=== PATIENT | female | born 2000 | race Caucasian/White ===

== ENCOUNTER 2020-07-26 23:25 | Inpatient (IN) | payer OTHER ==
[2020-07-26] MEDS ORDERED: LIDOCAINE HCL 1% PRESERVATIVE FREE - 30ML VIAL ONE (23:46)
[2020-07-27] MEDS ORDERED: OXYTOCIN 20 UNITS in 0.9% NS 20 UNIT/1,000 ML INFUS.BAG IV ONE (00:01)
--- NOTE | 2020-07-27 01:58 | HP ---
Past Medical History - Admission Chief Complaint: active labor History of Present Illness: active labor History Source: Patient Limitations to Obtaining History: No Limitations - Past Medical History SENIOR PROGRAM PLANNER: No: Alzheimer's, CVA, Dementia, Migraine, Multiple Sclerosis, Peripheral Neuropathy, Parkinson's, Seizure, Syncope, TIA, Vertigo, Other Cardiovascular: No: AFIB, Aneurysm, Aortic Insufficiency, Aortic Stenosis, CAD, CHF, Deep Vein Thrombosis, HTN, Hyperlipdemia, OH, Mitral Insufficiency, Mitral Stenosis, Murmur, Pulmonary Hypertension, Other Pulmonary: No: Asthma, Bronchitis, Cancer, COPD, O2 Dependent, Pneumonia, Previously Intubated, Pulmonary Embolus, Pulmonary Fibrosis, Sleep Apnea, Other Gastrointestinal: No: Ascites, Cancer, Constipation, Crohn's Disease, Diverticulitis, Diverticulosis, Esophageal Varices, Gastritis, GERD, GI Bleed, Hemorrhoids, Hiatal Hernia, Inflamatory Bowel Disease, Irritable Bowel Disease, Pancreatitis, Peptic Ulcer Disease, Ulcerative Colitis, Other Hepatobiliary: No: Cirrhosis, Cholelithiasis, Cholecystitis, Choledocholithiasis, Hepatitis A, Hepatitis B, Hepatitis C, Other Renal/: No: Renal Failure, Renal Inusuff, BPH, Cancer, Hematuria, Hemodialysis, Neurogenic Bladder, Renal Calculi, UTI, Other Reproductive: No: Ectopic , Endometriosis, Fibroids, PID, Polycystic Ovary Syndrome, Postmenopausal, Other ...EDC by Dates: 08/28/20 Heme/Onc: No: Anemia, B12 Deficiency, Bleeding Disorder, Cancer, Current Chemotherapy, Current Radiation Therapy, Hemochromatosis, Hypercoaguable State, Myeloproliferative Synd, Sickle Cell Disease, Sickle Cell Trait, Thrombocytopenia, Other Infectious Disease: No: AIDS, C-Diff, Herpes Zoster, HIV, MRSA, STD's, Tuberculosis, VREF, Other Psych: No: Addictions, Anxiety, Bipolar, Depression, Panic, Psychosis, Schizophrenia, Other Musculoskeletal: No: Bursitis, Chronic low back pain, Hemiparesis, Hemiplegia, Osteoarthritis, Paraplegia, Other Rheumatology: No: Fibromyalgia, Gout, Lupus, Rheumatoid Arthritis, Sarcoidosis, Vasculitis, Other ENT: No: Allergic Rhinitis, Sinusitis, Other Endocrine: No: Prosper's Disease, Susan's Disease, Diabetes Insipidus, Diabetes Mellitus, Hyperparathyroidism, Hyperthyroidism, Hypothyroidism, Osteopenia, SIADH, Other Dermatology: No: Basal Cell, Cellulitis, Eczema, Melanoma, Psoriasis, Squamous Cell, Other - Past Surgical History Past Surgical History: No: None, AAA Repair, AICD, Amputation, Appendectomy, Arthrosocopy, AV Fistula/Graft, Bariatric Surgery, Breast Biopsy, Bypass, CABG, Carotid Endarterectomy, Cataract Removal, Cholecystectomy, Colectomy, Colonoscopy, Colostomy, Craniotomy, , Cystectomy, Hernia Repair, Hysterectomy, Ileal Conduit, Ileosotomy, Joint Replacement, Kidney Transplant, Laminectomy, Liver Transplant, Mastectomy, Nephrectomy, Oopherectomy, Orchiectomy, Permanent Pacemaker, Prostatectomy, Splenectomy, Stent, Thoracotomy, TURP, Tonsillectomy, Tubal Ligation, Upper Endoscopy, Valve Replacement, Vasectomy, Vein Stripping/Ligation Hx Myomectomy: No Hx Transabdominal Cerclage: No - Advance Directives Advance Directives: Yes: Living Will - Smoking History Smoking history: Never smoked Have you smoked in the past 12 months: No - Alcohol/Substance Use Hx Alcohol Use: No History of Substance Use: reports: None - Social History Usual Living Arrangement: Yes: With Significant Other Do you think of yourself as: Straight/Heterosexual ADL: Independent History of Recent Travel: No Family Medical History Family History: Denies Review of Systems - Review of Systems Constitutional: reports: No Symptoms Eyes: reports: No Symptoms HENT: reports: No Symptoms Neck: reports: No Symptoms Cardiovascular: reports: No Symptoms Respiratory: reports: No Symptoms Gastrointestinal: reports: No Symptoms Genitourinary: reports: No Symptoms Breasts: reports: No Symptoms Reported Musculoskeletal: reports: No Symptoms Integumentary: reports: No Symptoms Neurological: reports: No Symptoms Endocrine: reports: No Symptoms Hematology/Lymphatic: reports: No Symptoms Psychiatric: reports: No Symptoms Physical Exam - Maternity Constitutional: Yes: Well Nourished, No Distress, Calm Eyes: Yes: WNL, Conjunctiva Clear, EOM Intact HENT: Yes: WNL, Atraumatic, Normocephalic Neck: Yes: WNL, Supple, Trachea Midline Cardiovascular: Yes: WNL, Regular Rate and Rhythm Lungs: Clear to auscultation Breast(s): Yes: WNL - Abdominal Exam/OB Number of Fetuses: Single Presentation: Vertex Contractions: Yes Regularity: Regular Intensity: Strong Monitor Mode: External Heart Rate (range): 150 Heart Rate Location: [facility] Category: I Accelerations: Uniform Decelerations: None - Vaginal Exam/OB Vaginal Bleeding: Bloody Show Speculum Exam: No Dilatation (cm): 10 Effacement (%): 100 Amniotic Membrane Status: Ruptured Amniotic Fluid: Yes: Clear Presentation: Vertex/Position Station: +1 - Physical Exam Musculoskeletal: Yes: WNL Extremities: Yes: WNL Edema: No Integumentary: Yes: WNL Deep Tendon Reflex Grade: Normal +2 ...Motor Strength: WNL Psychiatric: Yes: WNL, Alert, Oriented Hemorrhage Risk Assessment - Risk Factors Medium Risk Factors: Yes: None High Risk Factors: Yes: None Risk Score: 1 Risk Level: Medium Risk Assessment/Plan precip delivery , anticipate
[2020-07-27] MEDS ORDERED: DEXTROSE 5%-LACTATED RINGERS 1,000 ML IV SCH (02:00)
[2020-07-27] MEDS ORDERED: BISACODYL 10 MG SUPP.RECT RC PRN (02:01)
[2020-07-27] MEDS ORDERED: WITCH HAZEL 50% (TUCKS) 40 PAD/JAR PAD TP PRN (02:01)
[2020-07-27] MEDS ORDERED: BENZOCAINE 20% 57 GM BOTTLE TP PRN (02:01)
[2020-07-27] MEDS ORDERED: BENZOCAINE 28 GM HEMORRHOIDAL OINTMENT TP PRN (02:01)
[2020-07-27] MEDS ORDERED: ACETAMINOPHEN 325 MG TABLET (FP) PO PRN (02:01)
[2020-07-27] MEDS ORDERED: oxyCODONE HCL 5 MG TABLET PO PRN (02:01)
[2020-07-27] MEDS ORDERED: METHYLERGONOVINE MALEATE 0.2 MG/1 ML AMP IM PRN (02:01)
[2020-07-27] MEDS ORDERED: IBUPROFEN 600 MG TABLET (FP) PO PRN (02:01)
--- NOTE | 2020-07-27 02:01 | PN ---
Delivery - Delivery Vaginal Delivery: No Problems Type of Anesthesia: Local Episiotomy/Laceration: Right Mediolateral Delivery, Single - Stages of Labor Date 1st Stage Initiatied: 07/26/20 Date 2nd Stage Initiated: 07/26/20 Date of Delivery: 07/26/20 Date Placenta Delivered: 07/26/20 Placenta: Yes: Spontaneous - Condition of Cotton Inspector/Commercial Real Estate Sales Manager Present: Yes Infant Gender: Female Position: Left, OA - [place] Feeding Plan Benefits of Exclusively reinforced: No - Additional Information: railway signalling engineer at bedside for delivery Remarks - Remarks Remarks: no complications, 9/9, railway signalling engineer at bedside for delivery, pt had srom 45 min before arrived
[2020-07-27] MEDS ORDERED: OXYTOCIN 20 UNITS in 0.9% NS 20 UNIT/1,000 ML INFUS.BAG IV SCH (02:15)
[2020-07-27 03:27] LABS: BASO % 0.1 % (0-2.0); HEMOGLOBIN 13.6 GM/dL (10.7-15.3); LYMPH % 5.2 % (8-40); MCH 28.9 pg (25.7-33.7); MCHC 33.2 g/dl (32.0-36.0); MEAN PLT VOLUME 9.6 fl (7.5-11.1); MONO % 3.4 % (3.8-10.2); NEUT % 91.3 % (42.8-82.8); PLATELET COUNT 203 K/MM3 (134-434); RBC 4.71 M/mm3 (3.60-5.2); RDW 13.5 % (11.6-15.6); WHITE BLOOD COUNT 23.4 K/mm3 (4.0-10.0)
[2020-07-27 03:36] LABS: INR 0.86 (0.83-1.09); PROTHROMBIN TIME (PATIENT) 10.1 SEC (9.7-13.0)
[2020-07-27 03:38] LABS: ACTIVATED PTT 30.2 SECONDS (25.2-36.5)
[2020-07-27 03:54] LABS: ALBUMIN 2.9 g/dl (3.4-5.0); BLOOD UREA NITROGEN 12.7 mg/dL (7-18); CALCIUM 8.6 mg/dL (8.5-10.1); TOT PROT 7.1 g/dl (6.4-8.2)
[2020-07-27 04:16] LABS: BILIRUBIN,TOTAL 0.2 mg/dL (0.2-1)
[2020-07-27 06:18] VITALS: BMI 24.2
[2020-07-27 07:53] LABS: PLATELET ESTIMATE ADEQUATE
[2020-07-27] MEDS: PRENATAL VITAMINS W/ FOLIC ACID TABLET (FP) PO SCH (10:00)
[2020-07-27 22:22] VITALS: TEMP 98
[2020-07-28 08:00] VITALS: BP 130/61; PULSE 81
[2020-07-28 10:27] LABS: BASO % 0.2 % (0-2.0); EOS % 0.5 % (0-4.5); HEMATOCRIT 34.8 % (32.4-45.2); HEMOGLOBIN 11.4 GM/dL (10.7-15.3); MCH 28.4 pg (25.7-33.7); MCHC 32.8 g/dl (32.0-36.0); MEAN CELL VOLUME 86.5 fl (80-96); MONO % 4.4 % (3.8-10.2); NEUT % 83.9 % (42.8-82.8); PLATELET COUNT 181 K/MM3 (134-434); RBC 4.02 M/mm3 (3.60-5.2); RDW 13.6 % (11.6-15.6); WHITE BLOOD COUNT 16.6 K/mm3 (4.0-10.0)
[2020-07-28] MEDS: PRENATAL VITAMINS W/ FOLIC ACID TABLET (FP) PO SCH (10:40)
--- NOTE | 2020-07-28 13:47 | PN ---
Post Progress Note Post Day: 1 Type of Delivery: Vital Signs: Vital Signs Temperature 98 F 07/28/20 07:57 Pulse Rate 81 07/28/20 07:57 Respiratory Rate 18 07/28/20 07:57 Blood Pressure 130/61 07/28/20 07:57 O2 Sat by Pulse Oximetry (%) 96 07/28/20 07:57 Breast Exam: Yes: Soft Uterus: Yes: Fundus Firm, Fundus below umbilicus, Non-tender Abdomen/GI: Yes: Abdomen soft, Passing flatus, Tolerating PO Lochia: Yes: Serosa Lochia, amount: Small Extremities: Yes: Calves non-tender Perineum: Yes: Episiotomy Activity: Ambulating - Labs Labs: CBC WBC 16.6 K/mm3 (4.0-10.0) H 07/28/20 09:50 RBC 4.02 M/mm3 (3.60-5.2) 07/28/20 09:50 Hgb 11.4 GM/dL (10.7-15.3) 07/28/20 09:50 Hct 34.8 % (32.4-45.2) D 07/28/20 09:50 MCV 86.5 fl (80-96) 07/28/20 09:50 MCH 28.4 pg (25.7-33.7) 07/28/20 09:50 MCHC 32.8 g/dl (32.0-36.0) 07/28/20 09:50 RDW 13.6 % (11.6-15.6) 07/28/20 09:50 Plt Count 181 K/MM3 (134-434) 07/28/20 09:50 MPV 9.0 fl (7.5-11.1) 07/28/20 09:50 Absolute Neuts (auto) 13.9 K/mm3 (1.5-8.0) H 07/28/20 09:50 Total Counted 100 07/27/20 02:55 Neutrophils % 83.9 % (42.8-82.8) H 07/28/20 09:50 Neutrophils % (Manual) 88.0 % (42.8-82.8) H 07/27/20 02:55 Band Neutrophils % 5.0 % (0-10) 07/27/20 02:55 Lymphocytes % 11.0 % (8-40) D 07/28/20 09:50 Lymphocytes % (Manual) 4.0 % (8-40) L 07/27/20 02:55 Monocytes % 4.4 % (3.8-10.2) 07/28/20 09:50 Monocytes % (Manual) 3 % (3.8-10.2) L 07/27/20 02:55 Eosinophils % 0.5 % (0-4.5) D 07/28/20 09:50 Basophils % 0.2 % (0-2.0) 07/28/20 09:50 Nucleated RBC % 0 % (0-0) 07/28/20 09:50 Platelet Estimate Adequate 07/27/20 02:55 Platelet Comment No clotting detected 07/27/20 02:55 Assessment/Plan dc pt home today and return to cook 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
--- NOTE | 2020-07-28 13:49 | DS ---
Physical Exam-ROAD CONTRACTOR Vital Signs: Vital Signs Temperature 98 F 07/28/20 07:57 Pulse Rate 81 07/28/20 07:57 Respiratory Rate 18 07/28/20 07:57 Blood Pressure 130/61 07/28/20 07:57 O2 Sat by Pulse Oximetry (%) 96 07/28/20 07:57 Constitutional: Yes: Well Nourished, No Distress, Calm Eyes: Yes: WNL, Conjunctiva Clear, EOM Intact HENT: Yes: WNL, Atraumatic, Normocephalic Neck: Yes: WNL, Supple, Trachea Midline Cardiovascular: Yes: WNL, Regular Rate and Rhythm Respiratory: Yes: WNL, Regular, CTA Bilaterally Gastrointestinal: Yes: WNL, Normal Bowel Sounds, Soft ...Rectal Exam: Yes: WNL Renal/: Yes: WNL Pelvis: Yes: WNL External Genitalia: Yes: Normal Internal Exam Deferred: Yes Vaginal Exam: Yes: Normal Cervix: Yes: Normal Uterus: Yes: Normal Adnexa: Normal: Bilateral ....Post : Yes: Uterus firm, Uterus non-tender Breast(s): Yes: WNL Musculoskeletal: Yes: WNL Extremities: Yes: WNL Edema: Yes Integumentary: Yes: WNL Wound/Incision: Yes: Clean/Dry, Well Approximated Neurological: Yes: WNL, Alert, Oriented ...Motor Strength: WNL Psychiatric: Yes: WNL, Alert, Oriented Labs: CBC, BMP 07/28/20 09:50 07/27/20 02:55 Delivery - Delivery Vaginal Delivery: No Problems Type of Anesthesia: Local Episiotomy/Laceration: Right Mediolateral EBL (cc): 350 Delivery, Single - Stages of Labor Date 1st Stage Initiatied: 07/26/20 Time 1st Stage Initiated: 22:18 Date 2nd Stage Initiated: 07/26/20 Time 2nd Stage Initiated: 22:09 Date of Delivery: 07/26/20 Time of Delivery: 23:51 Time Placenta Delivered: 00:00 Placenta: Yes: Spontaneous - Condition of Liner Machine Operator/Boiler Blower Present: Yes Name: Xiao Rivers Infant Gender: Female Weight: 1.616 kg Position: Left, OA Total Hours ROM (Hrs/Mins): 1HR 51MIN - 1 Minute Total Score: 9 5 Minutes Total Score: 9 - Feeding Plan Initial Plan: Elected not to breastfeed exclusively throughout hospitalization Benefits of Exclusively reinforced: No Discharge Summary Problems reviewed: Yes Reason For Visit: LABOR Procedures: Principal: Other Procedures: none Hospital Course: uneventful Health Concerns: none Condition: Good - Instructions Diet, Activity, Other Instructions: Physical activity Resume your normal everyday activity as tolerated no heavy lifting or exercise until seen by your surgeon. You may walk unlimited lina of and climb stairs. You may resume driving the car when you feel safe and comfortable behind the wheel. No sexual activity as instructed. Wound care If you have a bandage, leave it on, and keep dry for 48-72 hours. After that time discard the outer bandage. If they are tapes on the skin under the out of bandage leave them in place. They will peel off in the next 7 to 10 days. Do Not Peel them off. You may shower the day after surgery. If there are tapes present on the skin, you may shower over them. Diet There are no dietary restrictions. Eat healthy, high-fiber foods. Drink 6 to 8 glasses of liquid each day. This will assist in keeping your bowels are regular. Pain management You may take Tylenol or acetaminophen or Ibuprofen (for example, Motrin, Advil etc.) from my pain prescription medication is ordered should be taken as prescribed for moderate to severe pain. Call MD for any of the following:call dr rand for 6 weeks appointment Severe pain not relieved by medication Fever of 101 or higher Excessive bleeding or drainage on dressing Inability to urinate Disposition: HOME - Home Medications Comprehensive Discharge Medication List: Ambulatory Orders Vitamins (Sjr) - 1 tab PO DAILY 07/27/20 Prescription Drug Monitoring Program (I-STOP) results: I-STOP reviewed and no issues identified
[2020-07-28] MEDS ORDERED: SENNOSIDES/DOCUSATE COMBO (SENNA PLUS) TABLET (UD) PO PRN (22:00)
== END 2020-07-28 14:45 | disposition home or self-care (01) | DRG 560 ==
LOC: JLDR 23:25 → EDBD 23:25 → J3N 07-27 03:03
PROVIDERS: ADMIT Obstetrics & Gynecology; ATTEND Obstetrics & Gynecology
PROC: 10E0XZZ Delivery of Products of Conception, External Approach (ICD-10-PCS; principal; 2020-07-26)
PROC: 0W8NXZZ Division of Female Perineum, External Approach (ICD-10-PCS; 2020-07-26)
DX: O80 Encounter for full-term uncomplicated delivery (principal); Z3A.35 35 weeks gestation of pregnancy; Z37.0 Single live birth
CPT/HCPCS: 36415; 59409; 80053; 85025; 85610; 85730; 86762; 86780; 86850; 86900; 86901; 87340; 87389; 87522; U0003